=== PATIENT | female | born 1940 | race Caucasian/White ===

== ENCOUNTER → 2017-09-07 | Outpatient (CLI) | payer MEDICARE ==
[~2017-09-07] MED LIST: REGADENOSON 0.4 MG/5 ML SYR IV ONE
--- NOTE | 2017-09-07 18:49 | Cardiology Report ---
DATE OF STUDY: September 07, 2017 LEXISCAN MYOVIEW STRESS TEST INDICATIONS: Chest pain. DESCRIPTION OF PROCEDURE: After informed consent, patient was brought to the stress lab. She was given 10.5 millicuries of technetium 99 Myoview, and myocardial perfusion SPECT images were obtained in the horizontal long axis, short axis and vertical long axis views. Subsequently, patient was given 0.4 mg Lexiscan over 10 seconds. The patient was given 33 millicuries of technetium 99 Myoview, and myocardial perfusion SPECT images were obtained in the horizontal long axis, short axis vertical long axis views. Gating images were also obtained. Patient tolerated this procedure without any complications. REPORT: Baseline EKG shows sinus rhythm at 75 beats per minute, leftward axis, normal intervals, nonspecific ST-T changes. PARAMETERS 1. Resting heart rate is 75 beats per minute. 2. Maximal heart rate is 91 beats per minute. 3. Resting blood pressure is 153/93 mmHg. 4. Maximum blood pressure 153/93 mmHg. REASON FOR TERMINATION: Endpoint attained. INTERPRETATION 1. Negative for chest pain. 2. Negative for arrhythmias. 3. Blood pressure response consistent with Lexiscan. 4. No significant ST-T changes seen during Lexiscan infusion compared to baseline. 5. Analysis of SPECT images reveals uniform radioisotope uptake in all segments of the myocardium without any significant perfusion defects. CONCLUSION: 1. No evidence of significant ischemia or infarction on this study. 2. No wall motion abnormalities. 3. Overall ejection fraction is 82%. Job#: [id number]
== END ==
LOC: NM 07:39
DX: R07.2 Precordial pain (principal)
CPT/HCPCS: 78452; 93017; A9502